=== PATIENT | female | born 1985 ===

== ENCOUNTER → 2018-04-11 | Day surgery (SDC) | payer OTHER ==
[~2018-04-11] VITALS: Ht 154.9 cm; Wt 90.7 kg
[~2018-04-11] MED LIST: BUPIVAC MPF-EPI 0.5%-1:200000 30 ML VIAL. ONE; CITA20TA9 PO; DESFLURANE 31 TO 60 MINUTES IH ONE; DEXAMETHASONE SOD PHOS 20 MG/5 ML VIAL. ONE; DULO30CA2 PO; GABA-586 PO; GEMF600T4 PO; GLYCOPYRROLATE 1 MG/5 ML VIAL. ONE; HYDR25TA PO; HYDROmorphone 2 MG/ML VIAL IV PRN; IV RINGERS,LACTATED 1000ML 1,000 ML IV SCH; LIDOCAINE 1% PF 2 ML VIAL. ID PRN; MIDAZOLAM HCL/PF 2 MG/2 ML VIAL. ONE; MORPHINE SULFATE 2 MG/ML VIAL. IV PRN; NEOSTIGMINE METHYLSULFATE 5 MG/5 ML SYRINGE. ONE; ONDANSETRON PF 4 MG/2 ML VIAL. IV PRN; ONDANSETRON PF 4 MG/2 ML VIAL. ONE; PROCHLORPERAZINE 10 MG/2 ML VIAL. IV PRN; PROCHLORPERAZINE 10 MG/2 ML VIAL. ONE; PROPOFOL 20 ML IV ONE; ROCURONIUM 50 MG/5 ML VIAL. ONE; SUMA100T4 PO; TOPI50TA38 PO; fentaNYL PF VIAL 100 MCG/2 ML VIAL IV PRN; fentaNYL PF VIAL 100 MCG/2 ML VIAL ONE
--- NOTE | 2018-04-11 07:49 | PDOC1 ---
History and Physical Date of Admission Date of Admission DATE: 04/11/18 TIME: 07:45 Identification/Chief Complaint Chief Complaint Abdominal pain Source Source: Patient History of Present Illness History of Present Illness 32-year-old female complains of a bulge with pain just above her umbilicus ultrasound of this area shows a ventral hernia with incarcerated omentum likely from a previous cholecystectomy incision. She denies any nausea vomiting fevers or chills Past Medical History Cardiovascular: No pertinent hx Pulmonary: No pertinent hx GI: No pertinent hx Heme/Onc: No pertinent hx Hepatobiliary: No pertinent hx Psych: No pertinent hx Rheumatologic: No pertinent hx Infectious disease: No pertinent hx ENT: No pertinent hx Renal/: No pertinent hx Endocrine: No pertinent hx Dermatology: No pertinent hx Past Surgical History Past Surgical History: Cholecystectomy, , Other (back surgery) Family History Family History: No Significant Social History Smoke: No ALCOHOL: none Drugs: None Current Medications Current Medications Current Medications Ondansetron HCl (Zofran) 4 mg PRN Q6HRS PRN IV NAUSEA/VOMITING; Start at 07:00; Stop 04/12/18 at 06:59 Fentanyl Citrate (Fentanyl 2ml Vial) 25 mcg PRN Q5MIN PRN IV MILD PAIN; Start 04/11/18 at 07:00; Stop 04/12/18 at 06:59 Fentanyl Citrate (Fentanyl 2ml Vial) 50 mcg PRN Q5MIN PRN IV MODERATE TO SEVERE PAIN; Start 04/11/18 at 07:00; Stop 04/12/18 at 06:59 Morphine Sulfate (Morphine Sulfate) 1 mg PRN Q10MIN PRN IV SEVERE PAIN; Start 04/11/18 at 07:00; Stop 04/12/18 at 06:59 Ringer's Solution 1,000 ml @ 30 mls/hr Q24H IV Last administered on at 06:44; Start 04/11/18 at 07:00; Stop 04/11/18 at 18:59 Lidocaine HCl (Xylocaine-Mpf 1% 2ml Vial) 2 ml PRN 1X PRN ID IV START; Start 04/11/18 at 07:00; Stop 04/12/18 at 06:59 Hydromorphone HCl (Dilaudid) 0.5 mg PRN Q10MIN PRN IV SEV PAIN, Second choice; Start 04/11/18 at 07:00; Stop 04/12/18 at 06:59 Prochlorperazine Edisylate (Compazine) 5 mg PACU PRN PRN IV NAUSEA, MRX1; Start 04/11/18 at 07:00; Stop 04/12/18 at 06:59 Cefazolin Sodium/ Dextrose 50 ml @ 100 mls/hr 1X PREOP PRN IV PRIOR TO PROCEDURE; Start 04/11/18 at 06:00; Stop 04/11/18 at 18:00 Bupivacaine HCl/ Epinephrine Bitart (Sensorcain-Mpf Epi 0.5%-1:[id number]) 30 ml STK -MED ONCE .ROUTE ; Start 04/11/18 at 06:45; Stop 04/11/18 at 06:46; Status DC Dexamethasone Sodium Phosphate (Decadron) 20 mg STK-MED ONCE .ROUTE ; Start at 07:22; Stop 04/11/18 at 07:23; Status DC Ondansetron HCl (Zofran) 4 mg STK-MED ONCE .ROUTE ; Start 04/11/18 at 07:22; Stop 04/11/18 at 07:23; Status DC Propofol 20 ml @ As Directed STK-MED ONCE IV ; Start 04/11/18 at 07:22; Stop 04/11/18 at 07:23; Status DC Midazolam HCl (Versed) 2 mg STK-MED ONCE .ROUTE ; Start 04/11/18 at 07:22; Stop 04/11/18 at 07:23; Status DC Fentanyl Citrate (Fentanyl 2ml Vial) 100 mcg STK-MED ONCE .ROUTE ; Start at 07:22; Stop 04/11/18 at 07:23; Status DC Rocuronium [place] (Zemuron) 50 mg STK-MED ONCE .ROUTE ; Start 04/11/18 at 07: 22; Stop 04/11/18 at 07:23; Status DC Active Scripts Active Reported Topamax (Topiramate) 50 Mg Tablet 50 Mg PO BID Sumatriptan Succinate 100 Mg Tablet 100 Mg PO ONCE PRN Hydroxyzine Hcl 25 Mg Tablet 50 Mg PO HS Gemfibrozil 600 Mg Tablet 600 Mg PO BID Gabapentin 300 Mg Capsule 300 Mg PO BID Cymbalta (Duloxetine Hcl) 30 Mg Capsule.dr 30 Mg PO DAILY Celexa (Citalopram Hydrobromide) 20 Mg Tablet 20 Mg PO HS Allergies Allergies: Coded Allergies: aspirin (Verified Allergy, Unknown, 04/11/18) ROS Gastrointestinal: Yes Abdominal Pain Physical Exam General: Alert, Oriented X3, Cooperative, No acute distress HEENT: Atraumatic, PERRLA, EOMI Lungs: Clear to auscultation, Normal air movement Heart: RRR, no gallops, no murmurs Abdomen: Normal bowel sounds, Soft, Other (tender palpation at the umbilicus with bulge) Rectal Exam: not examined Extremities: No edema Skin: No significant lesion Neuro: Normal speech Psych/Mental Status: Mental status NL Vitals Vitals Vital Signs Date Time Temp Pulse Resp B/P (MAP) Pulse Ox O2 Delivery O2 Flow Rate FiO2 04/11/18 06:22 98.1 81 16 99/54 96 Room Air 98.1 VTE Prophylaxis Ordered VTE Prophylaxis Devices: Yes VTE Pharmacological Prophylaxi: Contraindicated Assessment/Plan Assessment/Plan Incarcerated ventral incisional hernia plan laparoscopic repair GILSON SHER MD Apr 11, 2018 07:49
[2018-04-11 08:00] LABS: U PREG PATIENT NEGATIVE (NEG)
--- NOTE | 2018-04-11 08:58 | DISCH ---
DISCHARGE INSTRUCTIONS Condition on Discharge Condition on Discharge: Stable Activity After Discharge Activity Instructions for Disc: Avoid exertion Other activity instructions: no lifting more than 20 pounds for 2 weeks Diet after Discharge Diet after Discharge: Regular Wound Incision Care Other wound/incision instructi: May shower in 24 hours Contacting the [facility] after DC Call your doctor for: If your condition worsens Follow-Up Follow up with: Dr. Sher in 2 weeks GILSON SHER MD Apr 11, 2018 08:58
--- NOTE | 2018-04-11 08:58 | PDOC4 ---
Operative Note Operative Note Date: 04/11/2018 Preoperative diagnosis: Incarcerated ventral incisional hernia Postoperative diagnosis: Same Procedure: Robotic-assisted laparoscopic ventral hernia repair with mesh Specimen: None Surgeon: Benjamin Dictation: Patient is a 32-year-old female who couple years ago had a laparoscopic cholecystectomy she subsequently developed a hernia at the umbilicus since incisional site with incarcerated omentum procedure of robotic- assisted laparoscopic ventral hernia repair with mesh was explained to the patient detail was benefits were also discussed including bleeding infection injury to intra-abdominal contents possibly necessitating further or open operations alternatives to this procedure also discussed with patient seemed understanding gave both verbal and written consent to have the procedure performed. Patient was taken to the operating room placed the supine position general anesthesia was initiated once patient was asleep and intubated her abdomen was prepped and draped usual sterile fashion using ChloraPrep. An area in the left upper quadrant was injected with quarter percent Marcaine with epinephrine using a 5 mm Visiport access was gained to the abdominal cavity and a pneumoperitoneum was achieved once this was complete 8-1/2 mm da Adriana port was placed in the left mid abdomen and a second 8-1/2 mm da Adriana port was placed in the left lower abdomen the 5 mm Visiport was removed and replaced with a 8-1/2 mm da Adriana port in the left upper quadrant. The da Adriana robot was brought in and docked all port sites surgeon went to the robotic console using a grasper and Endo Kishan scissors the omentum was reduced from the hernia defect the hernia defect was then closed with a running 20V lock nonabsorbable suture. Mesh overlay was then placed this was a Bard ventral light ST mesh was sewn into place with a running 20 absorbable V lock suture. At the completion of this the da Adriana robot was undocked and removed from the operative field all ports removed without any difficulties and the port sites were closed with 4 septic or Monocryl Mastisol Steri-Strips and island dressings were applied. Patient was waken next made in the operating room taken recovery in stable condition all sponge instrument needle counts listed as correct estimate blood loss 5 mL GILSON SHER MD Apr 11, 2018 08:58
[2018-04-11] MEDS: fentaNYL PF VIAL 100 MCG/2 ML VIAL IV PRN ×2 (09:22→09:41)
[2018-04-11 10:06] VITALS: BP 100/61
== END | disposition home or self-care (01) ==
LOC: SURG 06:04 → EEVIPCON 08:00
PROVIDERS: ATTEND Surgery
DX: K43.6 Other and unspecified ventral hernia with obstruction, without gangrene (principal); E03.9 Hypothyroidism, unspecified; F41.9 Anxiety disorder, unspecified; F17.210 Nicotine dependence, cigarettes, uncomplicated; E78.00 Pure hypercholesterolemia, unspecified; F32.9 Major depressive disorder, single episode, unspecified; Z79.899 Other long term (current) drug therapy; Z90.49 Acquired absence of other specified parts of digestive tract; Z98.890 Other specified postprocedural states
CPT/HCPCS: 49653; 81025; A7015; C1781; J0690; J0780; J1100; J2250; J2405; J2704; J2710; J3010; J3490

== ENCOUNTER 2021-03-18 12:58 | Emergency (ER) | payer OTHER ==
[~2021-03-18] VITALS: Ht 154.9 cm; Wt 83.6 kg
[~2021-03-18 12:58] MED LIST changes: -BUPIVAC MPF-EPI 0.5%-1:200000 30 ML VIAL. ONE; -DESFLURANE 31 TO 60 MINUTES IH ONE; -DEXAMETHASONE SOD PHOS 20 MG/5 ML VIAL. ONE; -GABA-586 PO; +GABA300C18 PO; +GEMF600T20 PO; -GEMF600T4 PO; -GLYCOPYRROLATE 1 MG/5 ML VIAL. ONE; -HYDROmorphone 2 MG/ML VIAL IV PRN; -IV RINGERS,LACTATED 1000ML 1,000 ML IV SCH; -LIDOCAINE 1% PF 2 ML VIAL. ID PRN; -MIDAZOLAM HCL/PF 2 MG/2 ML VIAL. ONE; -MORPHINE SULFATE 2 MG/ML VIAL. IV PRN; -NEOSTIGMINE METHYLSULFATE 5 MG/5 ML SYRINGE. ONE; -ONDANSETRON PF 4 MG/2 ML VIAL. IV PRN; -ONDANSETRON PF 4 MG/2 ML VIAL. ONE; -PROCHLORPERAZINE 10 MG/2 ML VIAL. IV PRN; -PROCHLORPERAZINE 10 MG/2 ML VIAL. ONE; -PROPOFOL 20 ML IV ONE; -ROCURONIUM 50 MG/5 ML VIAL. ONE; -fentaNYL PF VIAL 100 MCG/2 ML VIAL IV PRN; -fentaNYL PF VIAL 100 MCG/2 ML VIAL ONE
[2021-03-18 14:10] LABS: BASO % 0 % (0-3); EOS # 0.1 x10^3/uL (0.0-0.7); EOS % 1 % (0-3); HEMATOCRIT 38.2 % (36.0-47.0); HEMOGLOBIN 12.9 g/dL (12.0-15.5); LYMPH # 1.6 x10^3/uL (1.0-4.8); LYMPH % 16 % (24-48); MEAN CORPUSCULAR HEMOGLOBIN 30 pg (25-35); MEAN CORPUSCULAR HGB CONC 34 g/dL (31-37); MEAN CORPUSCULAR VOLUME 89 fL (79-100); MONO # 0.8 x10^3/uL (0.0-1.1); MONO % 8 % (0-9); NEUT # 7.4 x10^3/uL (1.8-7.7); NEUT % 74 % (31-73); PLATELET COUNT 307 x10^3/uL (140-400); RED BLOOD COUNT 4.29 x10^6/uL (3.50-5.40); RED CELL DISTRIBUTION WIDTH 13.9 % (11.5-14.5)
[2021-03-18 14:12] LABS: BILIRUBIN,URINE NEGATIVE (NEG); CLARITY,URINE CLOUDY; COLOR,URINE YELLOW; NITRITE,URINE NEGATIVE (NEG); PROTEIN,URINE NEGATIVE (NEG-TRACE); UROBILINOGEN,URINE 0.2 mg/dL (0.2 mg/dL)
[2021-03-18] MEDS ORDERED: ONDANSETRON PF 4 MG/2 ML VIAL. IVP ONE (14:15)
[2021-03-18] MEDS ORDERED: MORPHINE SULFATE 10 MG/ML VIAL. IVP ONE (14:15)
[2021-03-18] MEDS ORDERED: IOHEXOL 300 MG/ML 100ML VIAL. IV ONE (14:15)
[2021-03-18] MEDS ORDERED: CONTRAST GIVEN. MC PRN (14:15)
[2021-03-18 14:18] LABS: GFR 62.7; POTASSIUM 3.8 mmol/L (3.5-5.1)
--- NOTE | 2021-03-18 14:18 | PHYS DOC ---
Past Medical History Additional Past Medical Histor: BILAT FINGER PROBLEMS Past Surgical History: Cholecystectomy Smoking Status: Never Smoker Alcohol Use: None General Adult EDM: Chief Complaint: ABDOMINAL PAIN HPI: HPI: Patient is a 35 year old female with history of cholecystectomy who presents with left lower quadrant pain for the past 2 days. Patient is currently incarcerated and presents with correctional officers. States the pain in his worsened over the past 2 days. Associated with fever/chills. Reports T-max 100.4 F just prior to arrival. Reports nausea and vomiting as well as diarrhea. No blood in the stool. No dysuria, hematuria, urgency, or frequency. States she has had slightly more vaginal discharge than usual recently. No vaginal bleeding. States the pain is sharp and at times radiates to the left flank, and at other times radiates towards the right lower quadrant. No history of diverticulitis or kidney stone. no history of similar pain. Denies any chronic medications or medical problems Review of Systems: Review of Systems: Constitutional: Reports fever and chills Eyes: Denies change in visual acuity. [] HENT: Denies nasal congestion or sore throat. [] Respiratory: Denies cough or shortness of breath. [] Cardiovascular: Denies chest pain or edema. [] GI: Reports abdominal pain, nausea, vomiting, and diarrhea : Denies dysuria, urgency, frequency. [] Musculoskeletal: Reports occasional left flank pain] Integument: Denies rash. [] Neurologic: Denies headache, focal weakness or sensory changes. [] Endocrine: Denies polyuria or polydipsia. [] Lymphatic: Denies swollen glands. [] Psychiatric: Denies depression or anxiety. [] Heart Score: C/O Chest Pain: No Current Medications: Current Medications Medications (Trade) Dose Ordered Sig/Pippa Start Time Stop Time Status Last Admin Dose Admin Iohexol (Omnipaque 300 Mg/ml) 75 ml 1X ONCE 03/18/21 14:15 03/18/21 14:16 UNV Morphine Sulfate (Morphine Sulfate) 5 mg 1X ONCE 03/18/21 14:15 03/18/21 14:16 UNV Ondansetron HCl (Zofran) 4 mg 1X ONCE 03/18/21 14:15 03/18/21 14:16 UNV Allergies: Allergies: Allergies Coded Allergies Type Severity Reaction Last Updated Verified aspirin Allergy Unknown 04/11/18 Yes Physical Exam: PE: Constitutional: Appears uncomfortable. Prefers right lateral recumbent position HENT: Normocephalic, atraumatic, bilateral external ears normal, oropharynx moist, no oral exudates, nose normal. [] Eyes: PERRLA, EOMI, conjunctiva normal, no discharge. [] Neck: Normal range of motion, no tenderness, supple, no stridor. [] Cardiovascular:Heart rate regular rhythm, no murmur [] Lungs & Thorax: Bilateral breath sounds clear to auscultation [] Abdomen: Severe tenderness diffusely with guarding. Worst in LLQ. Patient has a difficult time relaxing her abdominal wall. Skin: Warm, dry, no erythema, no rash. [] Back: No tenderness, no CVA tenderness. [] Extremities: No tenderness, no cyanosis, no clubbing, ROM intact, no edema. [] Neurologic: Alert and oriented X 3, normal motor function, normal sensory function, no focal deficits noted. [] Current Patient Data: Labs: Laboratory Tests Test 03/18/21 13:21 03/18/21 13:25 POC Urine HCG, Qualitative Hcg negative (Negative) White Blood Count 10.0 x10^3/uL (4.0-11.0) Red Blood Count 4.29 x10^6/uL (3.50-5.40) Hemoglobin 12.9 g/dL (12.0-15.5) Hematocrit 38.2 % (36.0-47.0) Mean Corpuscular Volume 89 fL (79-100) Mean Corpuscular Hemoglobin 30 pg (25-35) Mean Corpuscular Hemoglobin Concent 34 g/dL (31-37) Red Cell Distribution Width 13.9 % (11.5-14.5) Platelet Count 307 x10^3/uL (140-400) Neutrophils (%) (Auto) 74 % (31-73) H Lymphocytes (%) (Auto) 16 % (24-48) L Monocytes (%) (Auto) 8 % (0-9) Eosinophils (%) (Auto) 1 % (0-3) Basophils (%) (Auto) 0 % (0-3) Neutrophils # (Auto) 7.4 x10^3/uL (1.8-7.7) Lymphocytes # (Auto) 1.6 x10^3/uL (1.0-4.8) Monocytes # (Auto) 0.8 x10^3/uL (0.0-1.1) Eosinophils # (Auto) 0.1 x10^3/uL (0.0-0.7) Basophils # (Auto) 0.0 x10^3/uL (0.0-0.2) Laboratory Tests 03/18/21 13:25 Vital Signs: Vital Signs Date Time Temp Pulse Resp B/P (MAP) Pulse Ox O2 Delivery O2 Flow Rate FiO2 03/18/21 13:24 98.3 96 20 112/73 (86) 98 Room Air 98.3 EKG: EKG: [] Radiology/Procedures: Radiology/Procedures: [] Impression: [facility] [id number] [place], [place] [id number] IMAGING REPORT Signed PATIENT: ALBERTA AGUILAR ACCOUNT: [id number] : 1985 LOCATION: ER AGE: 35 SEX: F EXAM STATUS: REG ER ORD. PHYSICIAN: ZOYA CROFT MD REASON: LLQ PAIN, N/V, DIARRHEA PROCEDURE: CT ABD PELV W/ IV CONTRST ONLY INDICATION: Reason: LLQ PAIN, N/V, DIARRHEA / Spl. Instructions: OMNI 300 INJ. 75 MLS / History: COMPARISON: December 2019 TECHNIQUE: Axial CT images were obtained through the abdomen and pelvis with intravenous contrast. One or more of the following individualized dose reduction techniques were utilized for this examination: 1. Automated exposure control; 2. Adjustment of the mA and/or kV according to patient size; 3. Use of iterative reconstruction technique. FINDINGS: There is some groundglass opacities at right greater than left lung base with mild linear component at right base. Vascular: No abdominal aortic aneurysm. Hepatobiliary: Liver is low density. Nonspecific but can be seen with fatty infiltration. There is some high density material within the gallbladder fossa again seen which could be from calcifications within the cystic duct stump. Pancreas: No peripancreatic edema. Spleen: Spleen unremarkable. Renal/Bladder: Moderate left-sided hydronephrosis with 7 mm left proximal ureter stone. Urinary bladder is largely decompressed. Gastrointestinal: Cystic lesion within the right adnexa measuring up to 42 mm. Colonic diverticulosis. Small amount of haziness adjacent to diverticula in the left lower quadrant of the abdomen. Retrocecal appendix which has debris within the lumen without definite adjacent inflammatory changes. No dilated loops of bowel to suggest obstruction. Degenerative changes the spine. Multilevel central canal and neural foraminal stenosis. IMPRESSION: * Left-sided hydronephrosis with proximal ureter stone. * Colonic diverticulosis is identified as well as some prominence the wall within the sigmoid region with mild adjacent haziness the fat. Would correlate with symptoms in the region since causes such as mild diverticulitis could have this appearance. * Within the right adnexa there is a cystic lesion identified which may be adnexal in origin. * Liver is low density which can be seen with fatty infiltration. * Mild groundglass and linear opacities at the right greater than left lung base. Commonly from atelectasis unless the patient is having symptoms of pneumonia. Electronically signed by: Dalia Verdugo MD (03/18/2021 2:52 PM) [id number] DICTATED and SIGNED BY: DALIA VERDUGO MD DATE: 03/18/21 [id number] Course & Med Decision Making: Course & Med Decision Making Pertinent Labs and Imaging studies reviewed. (See chart for details) Patient 35-year-old female with history of cholecystectomy who presents with 2 days of left lower quadrant pain, nausea, vomiting, diarrhea. She has a concerning abdominal examination with diffuse tenderness worse in the left lower quadrant. DDx includes but is not limited to diverticulitis, perforation/abscess, kidney stone, colitis. Will check CBC, CMP, UA, CT abdomen/pelvis. Antiemetics and analgesics provided. 1417 UA with blood. CBC and CMP unremarkable. CT shows left-sided kidney stone with moderate hydronephrosis. There is also some concern for mild diverticulitis, given her diarrhea, will treat with Augmentin. Fortunately, no urinary symptoms to support a diagnosis of septic stone, and UA is without bacteria, nitrites, or leukocyte esterase. Pain is slightly improved, but still rates it 7/10 on reevaluation. Will attempt oxycodone to see if outpatient management is feasible. 1523 I become aware that the correctional facility will not allow her to be given narcotic pain medication as an outpatient. She does require narcotic pain medication for pain control with her ureterolithiasis. Feel she should be transferred to a facility with urology capability. Accepted to [facility] by Dr. Lerma. [id number] Javier Disclaimer: Javier Disclaimer: This electronic medical record was generated, in whole or in part, using a voice recognition dictation system. Departure Departure Impression: Primary Impression: Ureterolithiasis Additional Impression: Diverticulitis Disposition: 02 SHORT TERM HOSPITAL Condition: STABLE Referrals: CHA FERRARA DO (PCP) ZOYA CROFT MD Mar 18, 2021 14:18
[2021-03-18 14:24] LABS: ALBUMIN 3.9 g/dL (3.4-5.0); ALBUMIN/GLOBULIN RATIO 0.9 (1.0-1.7); TOTAL BILIRUBIN 0.3 mg/dL (0.2-1.0); TOTAL PROTEIN 8.2 g/dL (6.4-8.2)
[2021-03-18 14:37] LABS: AMORPHOUS SEDIMENT,UR PRESENT /HPF
[2021-03-18 14:38] LABS: BACTERIA,URINE 0 /HPF (0-FEW)
--- NOTE | 2021-03-18 14:55 | RAD ---
INDICATION: Reason: LLQ PAIN, N/V, DIARRHEA / Spl. Instructions: OMNI 300 INJ. 75 MLS / History: COMPARISON: December 2019 TECHNIQUE: Axial CT images were obtained through the abdomen and pelvis with intravenous contrast. One or more of the following individualized dose reduction techniques were utilized for this examinat ion: 1. Automated exposure control; 2. Adjustment of the mA and/or kV according to patient size; 3 . Use of iterative reconstruction technique. FINDINGS: There is some groundglass opacities at right greater than left lung base with mild linear component a t right base. Vascular: No abdominal aortic aneurysm. Hepatobiliary: Liver is low density. Nonspecific but can be seen with fatty infiltration. There is so me high density material within the gallbladder fossa again seen which could be from calcifications w ithin the cystic duct stump. Pancreas: No peripancreatic edema. Spleen: Spleen unremarkable. Renal/Bladder: Moderate left-sided hydronephrosis with 7 mm left proximal ureter stone. Urinary bladd er is largely decompressed. Gastrointestinal: Cystic lesion within the right adnexa measuring up to 42 mm. Colonic diverticulosis . Small amount of haziness adjacent to diverticula in the left lower quadrant of the abdomen. Retroce malick appendix which has debris within the lumen without definite adjacent inflammatory changes. No dilated loops of bowel to suggest obstruction. Degenerative changes the spine. Multilevel central canal and neural foraminal stenosis. IMPRESSION: * Left-sided hydronephrosis with proximal ureter stone. * Colonic diverticulosis is identified as well as some prominence the wall within the sigmoid region with mild adjacent haziness the fat. Would correlate with symptoms in the region since causes such a s mild diverticulitis could have this appearance. * Within the right adnexa there is a cystic lesion identified which may be adnexal in origin. * Liver is low density which can be seen with fatty infiltration. * Mild groundglass and linear opacities at the right greater than left lung base. Commonly from atel ectasis unless the patient is having symptoms of pneumonia. Electronically signed by: Antonio Short MD (03/18/2021 2:52 PM) [id number]
[2021-03-18] MEDS ORDERED: oxyCODONE IR 5 MG TABLET PO ONE (15:30)
[2021-03-18] MEDS ORDERED: AMOXICILLIN/K CLAV 875/125MG TABLET. PO ONE (15:30)
[2021-03-18] MEDS ORDERED: KETOROLAC 15 MG/ML VIAL. IVP ONE (16:00)
[2021-03-18 18:29] VITALS: BP 105/69
== END 2021-03-18 18:45 | disposition short-term general hospital (02) ==
LOC: ER 12:58
DX: N13.2 Hydronephrosis with renal and ureteral calculous obstruction (principal); Z20.822 Contact with and (suspected) exposure to COVID-19; K57.92 Diverticulitis of intestine, part unspecified, without perforation or abscess without bleeding; Z90.49 Acquired absence of other specified parts of digestive tract; Z88.6 Allergy status to analgesic agent
CPT/HCPCS: 36415; 74177; 80053; 81001; 81025; 85025; 87426; 96374; 96375; 99285; J1885; J2270; J2405; Q9967; U0003; U0005